=== PATIENT | male | born 1985 | race Caucasian/White ===

== ENCOUNTER → 2020-01-23 | Outpatient (CLI) | payer SELFPAY | LOC: M LABSMTC 15:00 | PROVIDERS: ATTEND Pediatrics | DX: Z20.828 Contact with and (suspected) exposure to other viral communicable diseases (principal) ==

== ENCOUNTER → 2022-10-05 | Outpatient (REF) | payer OTHER | LOC: M SFHCADAM 09:51 | PROVIDERS: ATTEND Nurse Practitioner Family | DX: Z53.9 Procedure and treatment not carried out, unspecified reason (principal) ==

== ENCOUNTER → 2023-06-20 | Outpatient (REF) | payer OTHER | LOC: M SFHCDERM 10:23 | PROVIDERS: ATTEND Nurse Practitioner Family | DX: L40.9 Psoriasis, unspecified (principal) ==

== ENCOUNTER → 2024-10-02 | Outpatient (REF) | payer OTHER | LOC: M SFHCADAM 13:40 | PROVIDERS: ATTEND Nurse Practitioner Family | DX: L40.9 Psoriasis, unspecified (principal); L83 Acanthosis nigricans; D22.9 Melanocytic nevi, unspecified; L81.2 Freckles; L81.4 Other melanin hyperpigmentation; D23.9 Other benign neoplasm of skin, unspecified; L82.1 Other seborrheic keratosis; L91.8 Other hypertrophic disorders of the skin; Z79.899 Other long term (current) drug therapy ==